=== PATIENT | female | born 1970 | race Caucasian/White ===

== ENCOUNTER → 2016-10-06 | Day surgery (SDC) | payer OTHER ==
[~2016-10-06] VITALS: Ht 175.3 cm; Wt 113.4 kg
[~2016-10-06] MED LIST: BUPROPION300 MG PO; FLEXERIL10 MG PO; IBUPROFEN800 MG PO; MOTRIN800 MG PO; PERCOCET 325 MG1 TA2 PO; WELLBUTRIN100 M1 PO
--- NOTE | 2016-10-06 13:44 | Operative Report ---
Operative/Inv Procedure Report Surgery Date: 10/06/16 Name of Procedure: Ultrasound-guided excisional biopsy left breast Pre-Operative Diagnosis: Left breast mass Post-Operative Diagnosis: Same Estimated Blood Loss: scant Surgeon/Telephone Messenger: EMELY BEAULIEU,MAGI Arrington Anesthesia: local monitored anesthesi Specimens: Upper outer quadrant left breast tissue Operative Indication: 46-year-old woman with a palpable mass in the upper-outer quadrant of her left breast. Formal ultrasound failed to show a pathologic finding. Clinical ultrasound in the office correlated with patient's physical exam findings show a 1 cm hypoechoic mass at the area of concern. She presents for ultrasound guided biopsy. Guidance will be performed in the operating room by me Operative/Procedure Note Note: After consent she is brought to the operative laid supine. While she was awake the area of concern was identified by the patient and confirmed by me. We correlated these findings with the ultrasound identified mass, which was then marked on the skin. She was then sedated and her breast prepped and draped. With ultrasound guidance a needle was placed into the mass and wire deployed. We then infiltrated the skin with local anesthesia and a upper outer quadrant radial incision made sharply. The wire was then brought up through the wound and a core of tissue around it taken with cautery and the tissue passed off the field. A second portion of tissue was taken inferiorly. One was then explored. Hemostasis achieved cautery. There were no further palpable findings. Wound was then irrigated with saline. The incision was closed in 2 layers of Vicryl sutures. Steri-Strips and sterile dressing applied. Sponge and needle counts are correct CC: REGGIE BEAULIEU,PAYAL Metzger
== END ==
LOC: STS 03:59
DX: N60.82 Other benign mammary dysplasias of left breast (principal); K21.9 Gastro-esophageal reflux disease without esophagitis
CPT/HCPCS: 88307; J0131; J1100; J2250; J2405